=== PATIENT | female | born 1985 | race Caucasian/White ===

== ENCOUNTER 2024-02-04 12:21 | Emergency (ER) | payer MEDICAID, SELFPAY ==
[2024-02-04 12:22] VITALS: BP 121/73; PULSE 111; RESP 22; TEMP 36.9; O2SAT 97; BMI 33.4
--- NOTE | 2024-02-04 13:35 | EDS_ITS ---
<Statement entered by Piedad Iglesias MD - 02/04/24 15:32> I have personally performed a face to face assessment of the patient and have reviewed the DARON Note. Patient presents secondary to right-sided low back pain with radiation down her leg. Patient reports a history of sciatica. For the past 1 week she has had increased pain that got significantly worse today. She does state that she was walking more than normal yesterday. She is currently in recovery from opiate abuse. She is also currently on Xarelto secondary to history of pulmonary emboli. She states she did not know what location is that she was able to take [id number] so she has not been taking anything for pain. Patient lying in bed no acute distress. Head and neck examination unremarkable. Heart is regular rate and rhythm. Lung sounds are clear. Abdomen is soft, nontender, no palpable mass. Back examination reveals tenderness in the right lower lumbar paraspinal region/sciatic notch. Neuro exam reveals good strength and sensation in the lower extremities with strong distal pulses. Patient's history and exam findings are consistent with sciatica. I do not feel imaging is needed at this time. She has done well with a steroid shot in the past and will be given IM Kenalog here along with IM Toradol. We discussed using Tylenol at home along with lidocaine patches topically. She is referred to local PCP to establish care. Return instructions provided. HPI History of Present Illness Chief Complaint: Lower Extremity Injury Narrative Narrative: Patient presenting today with right-sided low back pain that radiates into her buttocks, posterior aspect of her right thigh and behind her right knee that she has had over the past week that has progressively been getting worse. She does have a history of sciatica. She denies bowel/bladder incontinence, fever, chill s, leg weakness, and urinary symptoms. She reports that she is currently on Xarelto due to history of PE, she has been taking Tylenol with minimal relief of her pain. PFS PFS Medical History no medical history Home Medications ?Medication ?Instructions ?Recorded ?Last Taken ?Type lidocaine 5 % topical patch 1 patch topical DAILY #15 ea 02/04/24 Unknown Rx Allergy/AdvReac Type Severity Reaction Status Date / Time No Known Allergies Allergy Verified 02/04/24 12:22 Social History Smoking Status: Never smoker ROS ROS ED Constitutional Constitutional ED: Denies chills or fever(s) Cardiovascular Cardiovascular: Denies chest pain Respiratory/Chest Respiratory/Chest: Denies cough or dyspnea Gastrointestinal Gastrointestinal: Denies abdominal pain, nausea or vomiting Genitourinary Genitourinary ED: Denies dysuria or urinary frequency Musculoskeletal Musculoskeletal: Reports back pain Integumentary Denies rash Neurologic Neurologic: Denies paresthesias or weakness EXAM Physical Exam Const Vital Signs: 02/04/24 12:22 02/04/24 14:21 Temperature 98.4 F 98.4 F Temperature Source Temporal Pulse Rate 111 H 81 Respiratory Rate 22 H 16 Blood Pressure 121/73 H 149/78 H Blood Pressure Mean 89 101 Pulse Ox 97 99 Oxygen Delivery Method Room Air Positive well nourished, well developed and no apparent distress General Appearance ED: well developed HEENT Reports normocephalic and head/scalp atraumatic Mouth ED: Yes moist mucous membranes normal Eyes PERRL and EOMs intact bilaterally Neck full ROM and supple Chest Wall inspection of chest normal Resp normal respiratory effort and clear to auscultation bilaterally Cardio regular rate and regular rhythm GI soft to palpation, non-tender, non-distended and no masses Back/Spine normal ROM and normal to inspection Back/Spine Narrative: Right lumbar paraspinal tenderness to palpation. Negative straight leg test bilaterally Thoracic Spine / Upper Back: Negative for thoracic spinal tenderness Lumbar Spine / Lower Back: Negative for lumbar spinal tenderness Extremity normal to inspection and full ROM Neuro oriented x3, CN's II-XII intact bilaterally, moves all extremities, no focal motor deficits and no sensory deficits noted Sensorium / Orientation: awake and alert Motor Exam: strength 5/5 throughout Deep Tendon Reflexes: Rt Patellar (L4): 2+, Lt Patellar (L4): 2+, Rt Ankle (S1): 2+ and Lt Ankle (S1): 2+ Deep Tendon Reflexes Back: Rt Patellar (L4): 2+, Lt Patellar (L4): 2+, Rt Ankle (S1): 2+ and Lt Ankle (S1): 2+ Psych mental status grossly normal and thought process normal Skin no rashes or lesions noted and no wounds MDM MDM MDM Narrative Medical decision making narrative: Patient presenting with right-sided back pain that radiates down the posterior aspect of her right leg to the knee. She does have a history of sciatica, she thinks this feels similar. Examination is consistent with sciatica. She does not have any symptoms of cauda equina syndrome, low suspicion for spinal abscess, she had no injury to her back, I do not feel any imaging is indicated. She does not want oral prednisone as she does not tolerate this well, she has had a Kenalog shot for this in the past that did help, this will be given to her here as well is a shot of Toradol. Given she is on Xarelto she can take Tylenol as needed for pain with lidocaine patches. I have given her a PCP referral as she does not have one. Return instructions given and she will be discharged home in stable condition. Discharge Plan Triage Chief Complaint: Lower Extremity Injury ED Midlevel Provider: Lizzy Brower ED Provider: Piedad Iglesias Dx/Rx/DC Orders Clinical Impression: Sciatica of right side Instructions: ED Back Care Tips, ED Sciatica Prescriptions: New lidocaine 5 % adhesive patch,medicated 1 patch topical DAILY Qty: 15 0RF Rx Instructions: leave on most painful area for up to 12 hrs Primary Care Provider: Care Physician,No Primary Referrals: Veronica High MD [Med Staff - Active Staff] - 1 Week Activity Restrictions/Additional Instructions: You can also take Tylenol [id number] for your pain as needed. Follow-up with the PCP I have referred you to. Return for worsening of symptoms. Print Language: Yoruba Disposition Disposition: Home, Self Care Discharge Date/Time: 02/04/24 14:22
[2024-02-04] MEDS: Triamcinolone Acetonide 40 MG/ML Vial IM (14:01)
[2024-02-04] MEDS: Ketorolac 15 MG/ML Vial IM (14:01)
[2024-02-04 14:21] VITALS: BP 149/78; PULSE 81; RESP 16; TEMP 36.9; O2SAT 99
== END 2024-02-04 14:22 | disposition home or self-care (01) ==
PROVIDERS: Emergency Provider Emergency Medicine; Visit Provider Emergency Medicine
DX: M54.31 Sciatica, right side (principal); Z86.711 Personal history of pulmonary embolism; Z79.01 Long term (current) use of anticoagulants
CPT/HCPCS: 96372; 99282

== ENCOUNTER 2024-04-20 22:24 | Emergency (ER) | payer MEDICAID, SELFPAY ==
[2024-04-20 22:24] VITALS: TEMP 36.8
[2024-04-20 22:25] VITALS: BP 119/91; PULSE 144; RESP 21; TEMP -2.2; TEMP 28; O2SAT 96; BMI 31.5
--- NOTE | 2024-04-20 22:48 | EKG12_ITS ---
Test Reason : DYSRHYTHMIA Blood Pressure : / mmHG Vent. Rate : 127 BPM Atrial Rate : 129 BPM P-R Int : 128 ms QRS Dur : 072 ms QT Int : 402 ms P-R-T Axes : 041 063 056 degrees QTc Int : 584 ms Critical Test Result: Long QTc Sinus tachycardia Nonspecific ST and T wave abnormality Abnormal ECG Confirmed by MARIA ANDERSON, MISTI ([id number]), brands editor SHALOM CAMP ([id number]) on 04/22/2024 1:10:05 PM Referred By: Confirmed By:MISTI SIFUENTES MD
--- NOTE | 2024-04-20 23:06 | EX.ED.DYSGE1 ---
HPI <Dr. Huan Chisholm MD - Last Filed: 04/22/24 21:47> History of Present Illness Chief Complaint: Anxiety Detail of Chief Complaint: Anxiety after smoking weed . Informant: patient Onset/Context/Timing Onset: Hours Context: Sudden Onset Timing: Continuous Quality: Anxiousness, restlessness, palpitations Location: Generalized Current Severity: Moderate Maximum Severity: Severe Worsened by: Smoking marijuana from a new supplier Relieved by: Nothing Associated Symptoms Associated Symptoms: HPI narrative Narrative Narrative: Patient is a 38-year-old woman. She is depressed. She has discontinued her Seroquel and Lexapro 3 weeks ago. She states she stopped them because she thought this was causing her to have problems with sleep. She does admit to depression. Denies suicidal homicidal ideation. She went to a republican so she would not be in her room by herself. She reports that she smoked a joint from a different supplier. Shortly afterward she felt palpitations, shortness of breath, sweaty and anxiousness and unable to sit still. Patient denies headache, visual, ocular auditory symptoms. Patient states her mouth is dry and she is having trouble speaking because her mouth is dry. She denies perioral numbness. She does complain of tingling in her extremities. She denies abdominal pain, distention, nausea, vomiting or diarrhea. She denies dysuria, frequency, urgency or hematuria. Prior similar symptoms: No Recent Illness/Hospitalization: No [facility] <Dr. Huan Chisholm MD - Last Filed: 04/22/24 21:47> [facility] Medical History (Updated 04/20/24 @ 23:[address] Huan Chisholm MD) Anxiety and depression Pulmonary embolism Drug abuse DVT (deep venous thrombosis) Asthma Home Medications ?Medication ?Instructions ?Recorded ?Last Taken ?Type lidocaine 5 % topical patch 1 patch topical DAILY #15 ea 02/04/24 Unknown Rx albuterol sulfate 90 mcg/actuation 2 puff inhalation Q6H PRN 02/11/24 Unknown Rx aerosol inhaler shortness of breath or wheezing #6.7 grams mirtazapine 15 mg tablet (Remeron) 15 mg PO DAILY 02/11/24 Unknown History erqutwqw-uxq-[id number] ac 400 tab PO 02/11/24 Unknown History mcg-calcium carb 500 mg-vit K1 20 mcg tablet (Women's 50 Plus Multivitamin) quetiapine 200 mg tablet (Seroquel) 400 mg PO QHS 02/11/24 Unknown History quetiapine 25 mg tablet (Seroquel) 25 mg PO DAILY 02/11/24 Unknown History rivaroxaban 15 mg tablet (Xarelto) 15 mg PO DAILY 02/11/24 Unknown History ropinirole 1 mg tablet 1 mg PO DAILY 02/11/24 Unknown History venlafaxine 150 mg 150 mg PO DAILY 02/11/24 Unknown History capsule,extended release 24 hr (Effexor XR) venlafaxine 75 mg capsule,extended 75 mg PO DAILY 02/11/24 Unknown History release 24 hr (Effexor XR) hydroxyzine HCl 25 mg tablet 25 mg PO 4X/DAY PRN anxiety #28 04/21/24 Unknown Rx tabs Allergy/AdvReac Type Severity Reaction Status Date / Time Sulfa (Sulfonamide Allergy Intermediate Anaphylaxis Verified 02/11/24 15:17 Antibiotics) Family History Father Asthma Anxiety Mother Hypertension Social History adopted: No household members: other details: 180 house current occupational status: unemployed Smoking Status: Current every day smoker tobacco type: cigarettes how long ago did patient quit smokin pack over 3 days. alcohol intake: never substance use type: does not use and other details: formerly opiates and cocaine states she has been clean for 2.5 years what type of physical activity do you participate in: walking and yoga frequency: 1-2 times per week seatbelt use: always do you feel safe at home: Yes ROS <Dr. Huan Chisholm MD - Last Filed: 04/22/24 21:47> ROS ED Constitutional Constitutional ED: Denies chills, fever(s), subjective, sweats or weight loss Eyes Eyes: Denies blurry vision, change in vision or diplopia ENT ENT ED: Denies ear pain, rhinorrhea or sore throat Cardiovascular Cardiovascular: Reports palpitations and racing heartbeat; Denies chest pain, orthopnea or paroxysmal nocturnal dyspnea Respiratory/Chest Respiratory/Chest: Reports dyspnea and dyspnea on exertion; Denies cough, orthopnea or paroxysmal nocturnal dyspnea Gastrointestinal Gastrointestinal: Reports nausea; Denies abdominal pain, constipation, diarrhea, melena or vomiting Genitourinary Genitourinary ED: Denies dysuria, hematuria or urinary frequency Musculoskeletal Musculoskeletal: Denies arthralgias or myalgias Integumentary Reports other Details: Patient has several tattoos. ; Denies rash Neurologic Neurologic: Reports paresthesias and weakness; Denies headache(s) Psychiatric Psychiatric: Reports anxiety and depression; Denies suicidal ideation or suicidal thoughts Endocrine Endocrinology: Denies cold intolerance Hematologic/Lymphatic Hematologic/Lymphatic: Reports systems reviewed and no addt'l complaints, except as documented EXAM <Dr. Huan Chisholm MD - Last Filed: 04/22/24 21:47> Physical Exam Const Vital Signs: 04/20/24 22:24 04/20/24 22:25 04/21/24 00:24 Temperature 98.2 F 28 F L Temperature Source Tympanic Tympanic Pulse Rate 144 H 120 H Respiratory Rate 21 H 24 H Blood Pressure 119/91 H 156/109 H Blood Pressure Mean 100 124 Pulse Ox 96 94 Oxygen Delivery Method Room Air Room Air 04/21/24 02:00 04/21/24 04:00 04/21/24 06:00 Temperature Temperature Source Pulse Rate 137 H 64 64 Respiratory Rate 20 H 22 H 22 H Blood Pressure 102/62 103/74 Blood Pressure Mean 75 83 Pulse Ox 97 98 96 Oxygen Delivery Method Room Air Room Air Room Air Positive well nourished, well developed and unkempt Constitutional Narrative: Patient has abnormal motion. She is tachycardic and reports being anxious. General Appearance ED: unkempt, well developed and pallor; Negative for cyanotic, diaphoretic or NAD HEENT Reports dry mucous membranes HEENT Narrative: Head is atraumatic no cephalic. Ears normal. Nares patent. Posterior pharynx normal. TMs are normal. Mouth ED: Yes dry mucous membranes Mouth: dry mucous membranes Eyes PERRL and EOMs intact bilaterally Eyes Narrative: There is no nystagmus. General Eye ED: Negative for pale conjunctiva or scleral icterus Neck no lymphadenopathy and supple Chest Wall inspection of chest normal and palpation of chest normal Resp normal respiratory effort and clear to auscultation bilaterally Cardio regular rhythm, S1 normal heart sound, S2 normal heart sound and no murmurs Rate: tachycardic GI normal to inspection, nondistended, normoactive bowel sounds, non-tender, non-distended and no masses; Negative for hepatosplenomegaly Back/Spine no CVA tenderness Extremity normal to inspection General Extremety ED: Negative for edema or tenderness General Extremity: Negative for edema Neuro oriented x3, CN's II-XII intact bilaterally and no sensory deficits noted Neuro Narrative: Negative Chvostek sign. Patient's reflexes 2-3+ at the bicep, brachialis, patella and ankle. There is 3 beats of nonsustained clonus at the ankles. Negative Babinski sign. Sensorium / Orientation: alert Motor Exam: strength 5/5 throughout Psych Appearance: unkempt Attitude: agitated Mood & Affect: anxious Skin no rashes or lesions noted, no wounds and skin turgor normal Skin Narrative: Patient is slightly diaphoretic. General Skin Exam: pallor; Negative for elasticity normal or jaundice <Dr. Shilo Thomas DO - Last Filed: 04/21/24 07:25> Physical Exam Const Vital Signs: 04/20/24 22:24 04/20/24 22:25 04/21/24 00:24 Temperature 98.2 F 28 F L Temperature Source Tympanic Tympanic Pulse Rate 144 H 120 H Respiratory Rate 21 H 24 H Blood Pressure 119/91 H 156/109 H Blood Pressure Mean 100 124 Pulse Ox 96 94 Oxygen Delivery Method Room Air Room Air 04/21/24 02:00 04/21/24 04:00 04/21/24 06:00 Temperature Temperature Source Pulse Rate 137 H 64 64 Respiratory Rate 20 H 22 H 22 H Blood Pressure 102/62 103/74 Blood Pressure Mean 75 83 Pulse Ox 97 98 96 Oxygen Delivery Method Room Air Room Air Room Air [facility] <Dr. Huan Chisholm MD - Last Filed: 04/22/24 21:47> [facility] Narrative Medical decision making narrative: Suspect patient's anxiety and depression is exasperated the fact that she discontinued her medication 3 weeks ago. The present episode is due to illicit drug use. Suspect marijuana was laced with something that is causing her symptoms. This would most likely be a sympathomimetic. In light of this patient was treated with IV Ativan. EKG was obtained to rule out any acute ischemic changes. Lab Data Attestation: I reviewed the patient's lab results. Lab results narrative: White count is elevated with slight shift. This is nonspecific. This may be due to the illicit drug use and stress response. Comprehensive metabolic panel is marked for glucose of 137 with normal CO2 anion gap. BUN is normal at 12 with a creatinine of 1.19. Estimated GFR is 54. Alcohol was nondetected.There are no prior labs for comparison. Labs: Laboratory Results - last 24 hr 04/20/24 04/20/24 01:40 23:10 WBC 13.2 H RBC 4.20 Hgb 12.4 Hct 36.9 L MCV 87.9 MCH 29.5 MCHC 33.6 RDW Std Deviation 41.1 RDW Coeff of Yuly 13.0 Plt Count 286 MPV 9.4 Immature Gran % (Auto) 0.300 Neut % (Auto) 77.1 H Lymph % (Auto) 13.6 L Gove % (Auto) 7.7 Eos % (Auto) 0.8 Baso % (Auto) 0.5 Absolute Neuts (auto) 10.2 H Absolute Lymphs (auto) 1.80 Nucleated RBC % 0 Sodium 138 Potassium 3.1 L Chloride 107 Carbon Dioxide 24.0 Anion Gap 7 BUN 12 Creatinine 1.19 H Estim Creat Clear Calc 74.34 Est GFR (MDRD) Af Amer 65 Est GFR (MDRD) Non-Af 54 L BUN/Creatinine Ratio 10.1 Glucose 137 H Calcium 9.7 Total Bilirubin 0.80 AST 21 ALT 29 Alkaline Phosphatase 103 Total Protein 8.1 Albumin 3.9 Globulin 4.2 Albumin/Globulin Ratio 0.9 Urine Opiates Screen NEGATIVE Urine Methadone Screen NEGATIVE Ur Barbiturates Screen NEGATIVE Ur Phencyclidine Scrn NEGATIVE Ur Amphetamines Screen POSITIVE H MDMA (Ecstasy) Screen POSITIVE H U Benzodiazepines Scrn NEGATIVE Urine Cocaine Screen NEGATIVE U Cannabinoids Screen POSITIVE H Ur Drug Screen Comment Ethyl Alcohol < 3.0 EKG Initial EKG: Attestation: I personally reviewed and interpreted this EKG as follows: Interpretation: Sinus Tachycardia (Sinus tachycardia rate of 127. [place] interval is under 28 ms or cures duration 72 ms. QT and QTc is 402 and 584 ms respectively. This is prolonged. [place] is normal. Computer is reading ossific changes. This is due to the fact that patient cannot lie still due to the illicit drug use.) Treatment and Re-Evaluation :: Patient was reassessed at 2345. She is still agitated and fidgety. Nurse was able to establish an IV. This dose of Ativan was ordered. <Dr. Shilo Thomas, DO - Last Filed: 04/21/24 07:25> [facility] Lab Data Labs: Laboratory Results - last 24 hr 04/20/24 04/20/24 01:40 23:10 WBC 13.2 H RBC 4.20 Hgb 12.4 Hct 36.9 L MCV 87.9 MCH 29.5 MCHC 33.6 RDW Std Deviation 41.1 RDW Coeff of Yuly 13.0 Plt Count 286 MPV 9.4 Immature Gran % (Auto) 0.300 Neut % (Auto) 77.1 H Lymph % (Auto) 13.6 L Gove % (Auto) 7.7 Eos % (Auto) 0.8 Baso % (Auto) 0.5 Absolute Neuts (auto) 10.2 H Absolute Lymphs (auto) 1.80 Nucleated RBC % 0 Sodium 138 Potassium 3.1 L Chloride 107 Carbon Dioxide 24.0 Anion Gap 7 BUN 12 Creatinine 1.19 H Estim Creat Clear Calc 74.34 Est GFR (MDRD) Af Amer 65 Est GFR (MDRD) Non-Af 54 L BUN/Creatinine Ratio 10.1 Glucose 137 H Calcium 9.7 Total Bilirubin 0.80 AST 21 ALT 29 Alkaline Phosphatase 103 Total Protein 8.1 Albumin 3.9 Globulin 4.2 Albumin/Globulin Ratio 0.9 Urine Opiates Screen NEGATIVE Urine Methadone Screen NEGATIVE Ur Barbiturates Screen NEGATIVE Ur Phencyclidine Scrn NEGATIVE Ur Amphetamines Screen POSITIVE H MDMA (Ecstasy) Screen POSITIVE H U Benzodiazepines Scrn NEGATIVE Urine Cocaine Screen NEGATIVE U Cannabinoids Screen POSITIVE H Ur Drug Screen Comment Ethyl Alcohol < 3.0 Treatment and Re-Evaluation :: Patient was reassessed at 2345. She is still agitated and fidgety. Nurse was able to establish an IV. This dose of Ativan was ordered. Patient was signed out to me while awaiting urine tox screen as well as response to medication in the ER. The patient's urine tox screen showed methamphetamines and ecstasy and marijuana which would indicate the reason for her mental status at this time. Despite the 2 doses of Ativan she remained very anxious and agitated therefore she was given 50 mg of IM Benadryl and 5 mg of IM Haldol. This did subdue the patient and she slept for multiple hours. When she awoke she is no longer agitated or hallucinating indicating that her symptoms are truly polysubstance/drug-induced. At this time with stable vitals and resolution of symptoms as well as the fact she is not homicidal or suicidal there is no need for further workup in the ER or evaluation by psychiatry and she is otherwise safe for discharge Discharge Plan Triage Chief Complaint: Anxiety ED Provider: Huan Chisholm Dx/Rx/DC Orders Clinical Impression: Anxiety reaction, Sinus tachycardia seen on lower in supervisor, Illicit drug use, Depression, Leukocytosis Instructions: TBI Substance Abuse, ED Anxiety Reaction Prescriptions: New hydroxyzine HCl 25 mg tablet 25 mg PO 4X/DAY PRN (Reason: anxiety) Qty: 28 0RF No Action quetiapine [Seroquel] 25 mg tablet 25 mg PO DAILY venlafaxine [Effexor XR] 75 mg capsule,extended release 24hr 75 mg PO DAILY venlafaxine [Effexor XR] 150 mg capsule,extended release 24hr 150 mg PO DAILY Patient Comments: both in am ropinirole 1 mg tablet 1 mg PO DAILY mirtazapine [Remeron] 15 mg tablet 15 mg PO DAILY quetiapine [Seroquel] 200 mg tablet 400 mg PO QHS Women's 50 Plus Multivitamin 400 mcg-500 mg calcium-20 mcg tablet PO Xarelto 15 mg tablet 15 mg PO DAILY Patient Comments: one in am and one in evening for 2wks Rx Instructions: must administer with evening meal albuterol sulfate 90 mcg/actuation HFA aerosol inhaler 2 puff inhalation Q6H PRN (Reason: shortness of breath or wheezing) Qty: 6.7 0RF lidocaine 5 % adhesive patch,medicated 1 patch topical DAILY Qty: 15 0RF Rx Instructions: leave on most painful area for up to 12 hrs Primary Care Provider: Care Physician,No Primary Referrals: Nakul Villarreal MD [Med Staff - Active Staff] - Care Physician,No Primary [Primary Care Provider] - Print Language: Macedonian Disposition Disposition: Home, Self Care Discharge Date/Time: 04/21/24 07:36
[2024-04-20] MEDS: LORazepam 2 MG/ML Syringe 1 MG IV (23:11)
[2024-04-20 23:18] LABS: Absolute Neutrophil Count 10.2 X10^3/uL (2.0-7.7); Basophil# 0.07 X10^3/uL; Basophil% 0.5 % (0-1); Eosinophil# 0.11 X10^3/uL; Eosinophils% 0.8 % (0-5); Hematocrit 36.9 % (37-47); Hemoglobin 12.4 g/dL (12.0-15.0); Lymphocyte % 13.6 % (19-41); Mean Corp Hgb Conc 33.6 g/dL (32-36); Mean Corpuscular Hgb 29.5 pg (27.0-32.0); Mean Corpuscular Volume 87.9 fL (81-99); Mean Platelet Vol. 9.4 fl (6.2-12.0); Monocyte# 1.02 X10^3/uL; Monocyte% 7.7 % (0-10); NRBC Flagged by Analyzer 0 % (0-5); Neutrophil # 10.18 X10^3/uL (2.7-7.7); Neutrophil % 77.1 % (47-70); Platelet Count 286 K/mm3 (150-450); RBC Distribution Width SD 41.1 fl (35.1-43.9); White Blood Count 13.2 K/mm3 (4.4-11.0)
[2024-04-20 23:30] LABS: Alcohol, Blood (Medical)-Serum < 3.0 mg/dL
[2024-04-20 23:35] LABS: ALB/GLOB Ratio 0.9 RATIO (0.9-2.4); AST(SGOT) 21 U/L (15-37); Alanine Aminotransfer ALT/SGPT 29 U/L (13-56); Albumin, Serum 3.9 g/dL (3.2-5.0); Alkaline Phosphatase 103 U/L (45-117); Anion Gap 7 (5-15); BUN 12 mg/dL (7-18); BUN/Creat Ratio 10.1 RATIO (10-20); Calcium,Total 9.7 mg/dL (8.5-10.1); Chloride 107 mmol/L (98-107); Creatinine, Serum 1.19 mg/dL (0.55-1.02); EST Glomerular Filtration Rate 54 mL/min (>60); Est Glom Filt Rate - Afr Amer 65 mL/min (>60); Estimated Creatinine Clearance 74.34 ml/min; Globulin 4.2 g/dL (2.2-4.2); Glucose 137 mg/dL (74-106); Potassium 3.1 mmol/L (3.5-5.1); Protein, Total 8.1 g/dL (6.4-8.2); Sodium Level 138 mmol/L (136-145)
[2024-04-21] MEDS: LORazepam 2 MG/ML Syringe 1 MG IV (00:07)
[2024-04-21 00:24] VITALS: BP 156/109; PULSE 120; RESP 24; O2SAT 94
[2024-04-21] MEDS: Haloperidol Lactate 5 MG/ML Vial IM (01:18)
[2024-04-21] MEDS: DiphenhydrAMINE 50 MG/ML Syringe IM (01:18)
[2024-04-21 02:00] VITALS: PULSE 137; RESP 20; O2SAT 97
[2024-04-21 02:08] LABS: Amphetamine Urine VISTA POSITIVE (<1000 ng/mL); Barbiturate Urine VISTA NEGATIVE (< 200 ng/mL); Benzodiazepine Urine VISTA NEGATIVE (< 200 ng/mL); Cocaine Urine VISTA NEGATIVE (< 300 ng/mL); Ecstacy Urine VISTA POSITIVE (< 500 ng/mL); Methadone Urine VISTA NEGATIVE (< 300 ng/mL); PCP Urine VISTA NEGATIVE (< 25 ng/mL); THC Urine VISTA POSITIVE (< 50 ng/mL); Vista UDS pH Range 5
[2024-04-21 04:00] VITALS: BP 102/62; PULSE 64; RESP 22; O2SAT 98
[2024-04-21 06:00] VITALS: BP 103/74; PULSE 64; RESP 22; O2SAT 96
[2024-04-21 07:23] VITALS: BP 135/72; PULSE 91; RESP 19; TEMP 36.7; O2SAT 97
== END 2024-04-21 07:36 | disposition home or self-care (01) ==
PROVIDERS: Emergency Provider Emergency Medicine; Visit Provider Emergency Medicine
DX: F41.1 Generalized anxiety disorder (principal); F15.988 Other stimulant use, unspecified with other stimulant-induced disorder; F12.10 Cannabis abuse, uncomplicated; F32.A Depression, unspecified; R00.0 Tachycardia, unspecified; D72.829 Elevated white blood cell count, unspecified; F41.8 Other specified anxiety disorders; Z79.899 Other long term (current) drug therapy; F17.210 Nicotine dependence, cigarettes, uncomplicated
CPT/HCPCS: 80053; 80307; 82077; 85025; 93005; 96372; 96374; 96376; 99283; A4216

== ENCOUNTER 2024-05-15 21:01 | Emergency (ER) | payer MEDICAID, SELFPAY ==
[2024-05-15 21:02] VITALS: BP 131/102; PULSE 119; RESP 18; TEMP 36; O2SAT 98; BMI 29.2
--- NOTE | 2024-05-15 21:20 | CT_ITS ---
STUDY: CT BRAIN WITHOUT CONTRAST REASON FOR EXAM: Female, 38 years old. fall RADIATION DOSAGE (If Supplied By Facility): CTDIvol = ( 44.99 ) mGy, DLP = ( 779.24 ) mGycm TECHNIQUE: Transaxial CT imaging of the brain was performed without administration of intravenous contrast material. Individualized dose optimization techniques were used for this CT. COMPARISON: No relevant priors. FINDINGS: Normal soft tissue structures. Normal calvarium. Normal size ventricles and extra-axial spaces for the patient''s age. Normal white matter tracts of the cerebral hemispheres. Normal basal ganglia and thalami. Normal brainstem. Normal cerebellum. There is no intracranial hemorrhage. There are no findings of an acute ischemic infarction. Normal visualized paranasal sinuses. CT/Brain/Head without Contrast IMPRESSION: Normal unenhanced CT scan of the brain. Electronically Signed: Pa Epperson DO at 22:03 EDT ,
--- NOTE | 2024-05-15 21:53 | EX.ED.DYSGE1 ---
HPI <TAYLOR Cleary - Last Filed: 05/15/24 22:01> History of Present Illness Chief Complaint: Laceration Narrative Narrative: Patient is a 38-year-old female with history of drug abuse, restless leg syndrome, anxiety presents to the [facility] part after mechanical fall. Patient states that she was diagnosed with pulmonary embolus greater than 1 month ago, she is on Xarelto however she ran out and is following up with her doctor this upcoming week. Patient states that she tripped, landing on her left upper arm and she believes her tooth bit the left upper lip. Patient denies any LOC. Here for evaluation. Tetanus vaccination unknown. [facility] <TAYLOR Cleary - Last Filed: 05/15/24 22:01> [facility] Medical History (Updated 05/15/24 @ 22:01 by TAYLOR Cleary) Anxiety and depression Pulmonary embolism Drug abuse DVT (deep venous thrombosis) Asthma Home Medications ?Medication ?Instructions ?Recorded ?Last Taken ?Type lidocaine 5 % topical patch 1 patch topical DAILY #15 ea 02/04/24 Unknown Rx albuterol sulfate 90 mcg/actuation 2 puff inhalation Q6H PRN 02/11/24 Unknown Rx aerosol inhaler shortness of breath or wheezing #6.7 grams mirtazapine 15 mg tablet (Remeron) 15 mg PO DAILY 02/11/24 Unknown History svsceweh-dmh-ewlrh ac 400 tab PO 02/11/24 Unknown History mcg-calcium carb 500 mg-vit K1 20 mcg tablet (Women's 50 Plus Multivitamin) quetiapine 200 mg tablet (Seroquel) 400 mg PO QHS 02/11/24 Unknown History quetiapine 25 mg tablet (Seroquel) 25 mg PO DAILY 02/11/24 Unknown History rivaroxaban 15 mg tablet (Xarelto) 15 mg PO DAILY 02/11/24 Unknown History ropinirole 1 mg tablet 1 mg PO DAILY 02/11/24 Unknown History venlafaxine 150 mg 150 mg PO DAILY 02/11/24 Unknown History capsule,extended release 24 hr (Effexor XR) venlafaxine 75 mg capsule,extended 75 mg PO DAILY 02/11/24 Unknown History release 24 hr (Effexor XR) hydroxyzine HCl 25 mg tablet 25 mg PO 4X/DAY PRN anxiety #28 04/21/24 Unknown Rx tabs Allergy/AdvReac Type Severity Reaction Status Date / Time Sulfa (Sulfonamide Allergy Intermediate Anaphylaxis Verified 05/15/24 21:02 Antibiotics) Family History Father Asthma Anxiety Mother Hypertension Social History adopted: No household members: other details: 180 house current occupational status: unemployed Smoking Status: Current every day smoker tobacco type: cigarettes how long ago did patient quit smokin pack over 3 days. alcohol intake: never substance use type: does not use and other details: formerly opiates and cocaine states she has been clean for 2.5 years what type of physical activity do you participate in: walking and yoga frequency: 1-2 times per week seatbelt use: always do you feel safe at home: Yes ROS <TAYLOR Cleary - Last Filed: 05/15/24 22:01> ROS ED ROS Narrative Constitutional: Negative for fever, chills, weight loss, weakness Eyes: Negative for vision loss, vision change, double vision ENT: Negative for any sore throat, ear pain, congestion. Positive for left upper lip laceration Cardiovascular: Negative for any chest pain, tightness, palpitations Respiratory: Negative for any cough, sputum production, hemoptysis, dyspnea, dyspnea on exertion, orthopnea Gastrointestinal: Negative for any abdominal pain, nausea, vomiting, diarrhea, constipation, blood in stool, blood in vomit : Negative for any urinary frequency, dysuria, retention, blood in urine Muscle skeletal: Negative for any neck pain, back pain Neurological: Negative for any headache, syncope, dizziness Skin: Negative for any rashes, itching, abrasions, lacerations Psychiatric: Negative for any depression, anxiety, stress, suicidal ideation, homicidal ideation Hematologic: Negative for any excessive bruising, easy bleeding EXAM <TAYLOR Cleary - Last Filed: 05/15/24 22:01> Physical Exam Narrative Exam Narrative: Vital signs reviewed. HEET: Head normocephalic atraumatic, TMs clear bilaterally. Posterior pharynx is clear, moist mucous membranes. Nares clear bilaterally. Pupils are equal round reactive to light. Negative for any hemotympanum or septal hematoma. Patient does have a 1 cm horizontal laceration to the left upper lip. This is not go directly through the vermilion border, is more through the medial the lip up to the inner mouth. Patient has no tooth fractures. Neck: Supple with no lymphadenopathy or tenderness. No signs of meningismus. Cardiac: Regular rate and rhythm no murmurs gallops or rubs, equal peripheral pulses bilaterally. Respiratory: Lungs clear to auscultation bilaterally. No chest tenderness. Abdomen: Soft, nontender, nondistended. No abdominal bruit or pulsatile masses. No hepatosplenomegaly Extremities: No peripheral edema, no signs of gross trauma or deformity. Active full range of motion of all extremities. Neuro: Cranial nerves II through XII intact, no focal neurological deficits. Skin: Clean dry and intact with no rash, purpura, petechiae, vesicles or pustules. Backs/flank: No CVA tenderness, no midline spinal tenderness, no deformity. Psych: Normal mood and affect. No SI, HI or acute psychosis. Const Vital Signs: 05/15/24 21:02 05/15/24 22:11 Temperature 96.8 F L 98.1 F Temperature Source Temporal Pulse Rate 119 H 97 Respiratory Rate 18 18 Blood Pressure 131/102 H 128/99 H Blood Pressure Mean 111 108 Pulse Ox 98 99 Oxygen Delivery Method Room Air <Dr. Ameya Funez DO - Last Filed: 05/15/24 23:34> Physical Exam Const Vital Signs: 05/15/24 21:02 05/15/24 22:11 Temperature 96.8 F L 98.1 F Temperature Source Temporal Pulse Rate 119 H 97 Respiratory Rate 18 18 Blood Pressure 131/102 H 128/99 H Blood Pressure Mean 111 108 Pulse Ox 98 99 Oxygen Delivery Method Room Air [facility] <TAYLOR Cleary - Last Filed: 05/15/24 22:01> MDM Radiography Diagnostic Testing: Clinical Impression(s) from Imaging Studies Brain CT 05/15/24 21:20 IMPRESSION: Normal unenhanced CT scan of the brain. Electronically Signed: Pa Epperson DO at 22:03 EDT , Treatment and Re-Evaluation :: Differential diagnosis includes however is not limited to: Concussion, to cranial bleeding, tooth fracture, simple lip laceration Patient appears to be in no obvious distress, patient's vital signs are stable. Patient presents to the emergency department after mechanical fall, laceration of the left lip roughly [address] scan of the brain was negative for any acute process. Patient did have a 1 cm left lip laceration. I was able to anesthetize the area with lidocaine. Irrigate with normal saline. I did place 2 simple ruptured sutures of 5?0 rapid dissolving sutures. Patient tolerated well. Edges approximated nicely. Sterile gloves, sterile drapes were used. Patient will continue to keep this area clean and dry. She will follow-up with her PCP regarding her Xarelto. Instructed to return for any worsening symptoms. <Dr. Ameya Funez DO - Last Filed: 05/15/24 23:34> [facility] History & Record Review Discussion w/independent historian: Patient Radiography Diagnostic Testing: Clinical Impression(s) from Imaging Studies Brain CT 05/15/24 21:20 IMPRESSION: Normal unenhanced CT scan of the brain. Electronically Signed: Pa Epperson DO at 22:03 EDT Reading Location ID and State: [facility] / [place] Tel [phone], Service support , Treatment and Re-Evaluation :: Differential diagnosis includes however is not limited to: Concussion, to cranial bleeding, tooth fracture, simple lip laceration Patient appears to be in no obvious distress, patient's vital signs are stable. Patient presents to the emergency department after mechanical fall, laceration of the left lip roughly [address] scan of the brain was negative for any acute process. Patient did have a 1 cm left lip laceration. I was able to anesthetize the area with lidocaine. Irrigate with normal saline. I did place 2 simple ruptured sutures of 5?0 rapid dissolving sutures. Patient tolerated well. Edges approximated nicely. Sterile gloves, sterile drapes were used. Patient will continue to keep this area clean and dry. She will follow-up with her PCP regarding her Xarelto. Instructed to return for any worsening symptoms. I have personally performed a face to face assessment of the patient and have reviewed the DARON Note. I performed a substantive portion of the visit including all aspects of the following. My rico findings include: History is 38-year-old female presenting with left lip laceration. Patient sustained this from a fall. The patient is on Xarelto. No vomiting. No loss of consciousness. Exam is there is a 1 cm lip laceration at the junction of the upper and lower lip on the left. It is gaping. She has widespread dental decay but do not see any acute dental trauma. She appears neurovascular intact. She does have uncontrollable myoclonic jerks which the patient states is related to her restless leg. Medical Decison Making CT the brain is negative. Wound was sutured. Please see his note. The sutures were absorbable. Wound care discussed with patient who notes understanding. Discharge Plan Triage Chief Complaint: Laceration ED Midlevel Provider: Nakul Vasquez ED Provider: Ameya Funez Dx/Rx/DC Orders Clinical Impression: Fall, Head injury, Laceration of lip Instructions: ED Laceration, All Closures, ED Laceration, Lip or Mouth, ED Laceration Minimize Scars Prescriptions: No Action quetiapine [Seroquel] 25 mg tablet 25 mg PO DAILY venlafaxine [Effexor XR] 75 mg capsule,extended release 24hr 75 mg PO DAILY venlafaxine [Effexor XR] 150 mg capsule,extended release 24hr 150 mg PO DAILY Patient Comments: both in am ropinirole 1 mg tablet 1 mg PO DAILY mirtazapine [Remeron] 15 mg tablet 15 mg PO DAILY quetiapine [Seroquel] 200 mg tablet 400 mg PO QHS Women's 50 Plus Multivitamin 400 mcg-500 mg calcium-20 mcg tablet PO Xarelto 15 mg tablet 15 mg PO DAILY Patient Comments: one in am and one in evening for 2wks Rx Instructions: must administer with evening meal albuterol sulfate 90 mcg/actuation HFA aerosol inhaler 2 puff inhalation Q6H PRN (Reason: shortness of breath or wheezing) Qty: 6.7 0RF lidocaine 5 % adhesive patch,medicated 1 patch topical DAILY Qty: 15 0RF Rx Instructions: leave on most painful area for up to 12 hrs hydroxyzine HCl 25 mg tablet 25 mg PO 4X/DAY PRN (Reason: anxiety) Qty: 28 0RF Primary Care Provider: Care Physician,No Primary Referrals: Care Physician,No Primary [Primary Care Provider] - Activity Restrictions/Additional Instructions: Keep the area clean and dry, the sutures are supposed to dissolve. Try not to open your mouth wide over the next several days. Return for any signs of redness or infection. Print Language: Senegalese Disposition Disposition: Home, Self Care Discharge Date/Time: 05/15/24 22:12
[2024-05-15] MEDS: Lidocaine 1% (20 ml mdv) 20 ML Vial INFILT (22:08)
[2024-05-15] MEDS: Diphth,Pertuss(Acell),Tet Vac 0.5 ML Vial IM (22:08)
[2024-05-15 22:11] VITALS: BP 128/99; PULSE 97; RESP 18; TEMP 36.7; O2SAT 99
--- NOTE | 2024-05-15 22:12 | ED.RN ---
pt does not want to wait shot time d/t ride being here.
== END 2024-05-15 22:12 | disposition home or self-care (01) ==
PROVIDERS: Emergency Provider Emergency Medicine; Visit Provider Emergency Medicine
DX: S01.511A Laceration without foreign body of lip, initial encounter (principal); F17.200 Nicotine dependence, unspecified, uncomplicated; F41.9 Anxiety disorder, unspecified; W01.0XXA Fall on same level from slipping, tripping and stumbling without subsequent striking against object, initial encounter; Z86.711 Personal history of pulmonary embolism; Z86.718 Personal history of other venous thrombosis and embolism; J45.909 Unspecified asthma, uncomplicated; F32.A Depression, unspecified; K02.9 Dental caries, unspecified; Z23 Encounter for immunization
CPT/HCPCS: 12011; 70450; 90471; 90715; 99282